=== PATIENT | female | born 1980 | race Two or more races ===

== ENCOUNTER 2018-08-15 08:53 | Day surgery (SDC) | payer OTHER ==
[2018-08-15] MEDS ORDERED: TRAMADOL HCL50 MG PO (12:04)
[2018-08-15] MEDS ORDERED: MIRALAX17 GM PO (12:04)
[2018-08-15] MEDS ORDERED: ZOFRAN4 MG PO (12:04)
== END 2018-08-15 16:00 | disposition home or self-care (01) ==
LOC: CIR.AMB 08:53
DX: K80.10 Calculus of gallbladder with chronic cholecystitis without obstruction (principal)